=== PATIENT | female | born 1990 | race Caucasian/White ===

== ENCOUNTER → 2017-07-17 | Outpatient (CLI) | payer OTHER ==
[2017-07-18 13:09] LABS: Source Cervix
== END | disposition home or self-care (01) ==
LOC: LAB 17:59 → LAB SHORT 17:59
PROVIDERS: Nurse Practitioner Primary Care
DX: Z12.4 Encounter for screening for malignant neoplasm of cervix (principal)
CPT/HCPCS: G0123